=== PATIENT | male | born 1985 | race Caucasian/White ===

== ENCOUNTER 2022-03-21 17:04 | Emergency (ER) | payer MEDICAID ==
[~2022-03-21] VITALS: Ht 170.2 cm; Wt 77.6 kg
[2022-03-21 17:04] VITALS: BP 147/85
--- NOTE | 2022-03-21 17:41 | NUR ---
OBTAINED SABRINA AND PCR SAMPLES, HANDED TO CPT DELMAR AT BEDSIDE.
[2022-03-21 18:12] LABS: BASOPHILS % (AUTO) 0.8 % (0.0-2.0); EOSINOPHILS % (AUTO) 0.8 % (0.0-4.0); HEMATOCRIT 42.3 % (36-52); HEMOGLOBIN 13.6 g/dL (12.0-18.0); LYMPHOCYTES # (AUTO) 2.4 K/uL (2.0-11.5); MEAN CORPUSCULAR HEMOGLOBIN 27 pg (27-31); MEAN CORPUSCULAR HGB CONC 32 g/dL (33-37); MEAN CORPUSCULAR VOLUME 84.6 fL (80-94); MONOCYTES # (AUTO) 0.6 K/uL (0.8-1.0); MONOCYTES % (AUTO) 10.9 % (1.7-9.3); NEUTROPHILS # (AUTO) 2.2 K/uL (1.8-7.7); NEUTROPHILS % (AUTO) 41.5 % (42.2-75.2); PLATELET COUNT (AUTO) 246 K/uL (140-450); RED CELL DISTRIBUTION WIDTH 14.2 % (11.6-13.7); WHITE BLOOD COUNT (AUTO) 5.3 K/uL (4.8-10.8)
--- NOTE | 2022-03-21 18:12 | NUR ---
PATIENT WAS CHAPERONED TO THE RESTROOM.
[2022-03-21 18:53] LABS: ALBUMIN 3.8 g/dL (3.4-5.0); ANION GAP 13.4 (8-16); ASPARTATE AMINOTRANSFERASE 21 U/L (15-37); CARBON DIOXIDE 27.8 mmol/L (21-32); CHLORIDE 107 mmol/L (98-107); CREATININE 1.4 mg/dL (0.6-1.3); GFR ARICAN-AMERICAN 73 mL/min (>90); GLUCOSE 93 mg/dL (74-106); POTASSIUM 3.2 mmol/L (3.5-5.1); SODIUM SERUM 145 mmol/L (136-145); TOTAL BILIRUBIN 0.6 mg/dL (0.0-1.0); UREA NITROGEN, BLOOD 19 mg/dL (7-18)
[2022-03-21 18:54] LABS: ACETAMINOPHEN < 0.5 ug/ml (10-30); SALICYLATE < 2.8 mg/dL (2.8-20.0)
--- NOTE | 2022-03-21 19:25 | NUR ---
Report given to DEBBIE Victoria for transfer of care.
--- NOTE | 2022-03-21 19:55 | NUR ---
Patient resting comfortably in bed, chest rise and fall symmetrical, patient is a/ox4, no c/o pain or s/s of discomfort. Patient on 5150 hold, sitting at bedside. Addendum: 03/22/22 at 0442 by [email or web address] Patient resting comfortably in bed, chest rise and fall symmetrical, patient is a/ox4, no c/o pain or s/s of discomfort. Patient on 5150 hold, sitting at bedside, pt denies SI/HI. All of patient's belongings checked, marked and removed from bedside.
--- NOTE | 2022-03-21 20:09 | NUR ---
DR HOYT EXAMINING PT AT BEDSIDE
--- NOTE | 2022-03-21 20:10 | NUR ---
Patient resting comfortably in bed, chest rise and fall symmetrical, patient is a/ox4, no c/o pain or s/s of discomfort. Patient on 5150 hold, sitting at bedside. Addendum: 03/22/22 at 0442 by [email or web address] Patient resting comfortably in bed, chest rise and fall symmetrical, patient is a/ox4, no c/o pain or s/s of discomfort. Patient on 5150 hold, sitting at bedside, pt denies SI/HI. All of patient's belongings checked, marked and removed from bedside.
--- NOTE | 2022-03-21 21:02 | NUR ---
Patient resting comfortably in bed, chest rise and fall symmetrical, patient is a/ox4, no c/o pain or s/s of discomfort. Patient on 5150 hold, sitting at bedside. Addendum: 03/22/22 at 0441 by [email or web address] Patient resting comfortably in bed, chest rise and fall symmetrical, patient is a/ox4, no c/o pain or s/s of discomfort. Patient on 5150 hold, sitting at bedside, pt denies SI/HI. All of patient's belongings checked, marked and removed from bedside.
[2022-03-21 21:27] LABS: BARBITURATE, URINE NEGATIVE ng/ml (NEG <=200); BENZODIAZEPINE, URINE NEGATIVE ng/mL (NEG <=200); CANNABINOID, URINE NEGATIVE ng/mL (NEG <=50); COCAINE, URINE NEGATIVE ng/mL (NEG <=300); OPIATE, URINE NEGATIVE ng/mL (NEG <=2000); PHENCYCLIDINE SCREEN,URINE NEGATIVE ng/mL (NEG <=25)
--- NOTE | 2022-03-21 23:02 | NUR ---
return call from , call tx to primary rn
--- NOTE | 2022-03-21 23:05 | NUR ---
verbally informed of patient's history and reason for 5150 hold. verbalized understanding and ordered Zyprexa 5mg ODT BID PO, readback confirmed. stated he "will be back at 6 am." No further orders from . Addendum: 03/22/22 at 0441 by [email or web address] Patient resting comfortably in bed, chest rise and fall symmetrical, patient is a/ox4, no c/o pain or s/s of discomfort. Patient on 5150 hold, sitting at bedside, pt denies SI/HI. All of patient's belongings checked, marked and removed from bedside.
--- NOTE | 2022-03-21 23:07 | NUR ---
Patient resting comfortably in bed, chest rise and fall symmetrical, patient is a/ox4, no c/o pain or s/s of discomfort. Patient on 5150 hold, sitting at bedside. Addendum: 03/22/22 at 0441 by [id number] Patient resting comfortably in bed, chest rise and fall symmetrical, patient is a/ox4, no c/o pain or s/s of discomfort. Patient on 5150 hold, sitting at bedside, pt denies SI/HI. All of patient's belongings checked, marked and removed from bedside.
[2022-03-21] MEDS ORDERED: OLANZapine 5 MG TAB ONE (23:25)
[2022-03-21] MEDS: OLANZapine 5 MG ODT PO SCH (23:28)
--- NOTE | 2022-03-22 00:31 | NUR ---
Patient resting comfortably in bed, chest rise and fall symmetrical, patient is a/ox4, no c/o pain or s/s of discomfort. Patient on 5150 hold, sitting at bedside. Addendum: 03/22/22 at 0440 by [email or web address] Patient resting comfortably in bed, chest rise and fall symmetrical, patient is a/ox4, no c/o pain or s/s of discomfort. Patient on 5150 hold, sitting at bedside, pt denies SI/HI. All of patient's belongings checked, marked and removed from bedside.
--- NOTE | 2022-03-22 01:00 | NUR ---
Patient resting comfortably in bed, chest rise and fall symmetrical, patient is a/ox4, no c/o pain or s/s of discomfort. Patient on 5150 hold, sitting at bedside, pt denies SI/HI. All of patient's belongings checked, marked and removed from bedside.
--- NOTE | 2022-03-22 05:59 | NUR ---
PT SPEAKING TO DR FREED VIA TELEPSYCH.
--- NOTE | 2022-03-22 06:08 | NUR ---
Dr Pastor spoke to patient via video, and Dr. Pastor stated that he "is planning to transfer patient to psych facility."
--- NOTE | 2022-03-22 07:29 | NUR ---
Change of shift report given to Shelby LEWIS. Shelby RN verbalized understanding of report, no further questions.
--- NOTE | 2022-03-22 07:46 | NUR ---
RECEIVED REPORT FROM DEBBIE MADDOX, ASSUMED CARE AT THIS TIME. PATIENT RESTING IN BED WITH EYES CLOSED, ALL NEEDS MET AT THIS TIME.
--- NOTE | 2022-03-22 08:10 | NUR ---
SENIOR COURT OFFICE ASSISTANT BEDSIDE
--- NOTE | 2022-03-22 08:45 | NUR ---
PATIENT PROVIDED WITH BREAKFAST TRAY, SITTING UP IN BED EATING. [address], ALL NEEDS MET AT THIS TIME.
--- NOTE | 2022-03-22 09:28 | NUR ---
DC PLANNING MET WITH PATIENT AT BEDSIDE. PATIENT REPORTS BEING BROUGHT IN BY AMBULANCE. PATIENT REPORTS INITIALLY WANTING TO BE BROUGHT IN, HE BELIEVES THAT HE WAS EXPOSED TO RADIATION. 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 PATIENT REPORTS HE HAS A BACH/MASTER IN PHYSICS. PATIENT REPORTS RESIDING AT AT THE ADDRESS ON FILE WITH HIS UNCLE AND GRANDMOTHER, PATIENT REPORTS STAYING AT SECOND ADDRESS, [address] [place] [address] WHICH HE STATES IS HIS MOTHERS ADDRESS. PATIENT REPORTS RECENT AMPHETAMINE USE 03/21/22. PATIENT REPORTS MEETING WITH PSYCHIATRIST IN ED AND UNDERSTANDS HE HAS BEEN PLACED ON A HOLD. EXPLAINED TO PATIENT 51/50 HOLD AND NOTIFIED HIM THAT HOLD IS FOR 72 HOURS, HE BELIEVED HOLD WAS FOR 24 HRS. PATIENT DECLINED TO PROVIDE EMERGENCY CONTACTS AND ONLY PROVIDED THEIR NAMES, ANDERS DAWN (MOM) AND MELISSA DAWN (UNCLE). PATIENT REPORTS THAT BOTH KNOW THAT HE IS ADMITTED TO [facility]. PATIENT REPORTS HX OF SUBSTANCE USE METH AND REPORTS THAT HE PARTICIPATED IN CLEAN PATH (REHAB PROGRAM) IN [place] IN 2018 AND WAS SOBER FOR 5 MONTHS BEFORE RELAPSING. INQUIRED ON CURRENT STRESSORS, PATIENT STRUGGLED TO IDENTIFY CURRENT STRESSORS. ASSISTED PATIENT IN IDENTIFYING HEALTHY COPING SKILLS. PATIENT WAS RECEPTIVE AND IDENTIFIED COPING SKILLS. PATIENT MADE AWARE OF PROCESS OF 5150 HOLD, PATIENT IN UNDERSTANDING. SW OUTREACHED TO [facility] TO FOLLOW UP ON REFERRAL SENT OVER BY ED STAFF, HOWEVER, UNSUCCESSFUL. LEFT MESSAGE REQUESTING A RETURN PHONE CALL FOR UPDATE.
[2022-03-22] MEDS: OLANZapine 5 MG ODT PO SCH (09:37)
[2022-03-22] MEDS ORDERED: POTASSIUM CHLORIDE 10 MEQ TABER PO ONE (09:55)
--- NOTE | 2022-03-22 10:03 | NUR ---
SABRINA SWAB COLLECTED AND WALKED TO LAB
--- NOTE | 2022-03-22 12:14 | NUR ---
Patient to be transferred to [facility]. Is being transferred due to NEED FOR PSYCH SPECIALITY. Receiving facility has accepting physician and available space. ER physician has signed transfer form. Patient or responsible green party has agreed to transfer and signed form. Patient belongings inventoried and will be sent with patient. Copy of nursing notes, lab reports, Physicians Orders to be sent with patient. Report called to DEBBIE PARKS at receiving facility. [facility] ambulance service has been called for transfer. ETA is [phone].
[2022-03-22 13:27] VITALS: BP 115/77
--- NOTE | 2022-03-22 13:27 | NUR ---
[facility] AT BEDSIDE FOR TRANSPORT
== END 2022-03-22 13:27 ==
LOC: MED 17:04
DX: N17.9 Acute kidney failure, unspecified (principal); Z20.822 Contact with and (suspected) exposure to COVID-19; G93.40 Encephalopathy, unspecified; F15.90 Other stimulant use, unspecified, uncomplicated; I10 Essential (primary) hypertension
CPT/HCPCS: 36415; 80053; 80305; 85025; 87426; 87635; 99285; C9803; G0480; G0482